=== PATIENT | female | born 1965 | race Caucasian/White ===

== ENCOUNTER 2016-06-14 11:58 | Emergency (ER) | payer BC ==
[~2016-06-14] VITALS: Ht 152.4 cm; Wt 65.0 kg
[~2016-06-14 11:58] MED LIST: MAGNESIUM PO; MELO15TA3 PO; VITAMIN B-12 PO
[2016-06-14 12:09] VITALS: TEMP 36.6
[2016-06-14] MEDS ORDERED: SODIUM CHLORIDE 0.9% 1000ML 1,000 ML IV STA (12:29)
[2016-06-14] MEDS ORDERED: ACETAMINOPHEN 500 MG TAB PO STA (12:29)
--- NOTE | 2016-06-14 12:33 | EMERGENCY ROOM VISIT NOTE ---
History Report prepared by Jose Eliasibmaritza: David Whittaker Under the Supervision of: Dr. Jerome Monteiro M.D. First contact with patient: 12:00 Chief Complaint: SYNCOPE (NEAR SYNCOPE) Stated Complaint: NEAR SYNCOPE, ILLNESS Nursing Triage Summary: Patient arrived via EMS. Patient states has been having fatigue and runny nose since Sunday. Patient went to [facility] walk in clinic today and had sudden onset dizziness, lightheadedness and nausea. Patient had near syncopal episode. Patient denies previous history of dizziness and lightheadedness. Patient has hx of breast CA. Patient c/o dizziness, lightheadedness and nausea upon arrival to ER. History of Present Illness The patient is a 51 year old female who presents to the Emergency Room with complaints of a resolved episode of near-syncope that occurred prior to arrival. The patient was seen by a [facility] urgent care clinic earlier today for ongoing sinus congestion and rhinorrhea for the past five days. She denies cough. She notes that her symptoms resemble past sinus infections. She became dizzy and lightheaded at the [facility] clinic and nearly passed out. She currently complains of feeling nauseous. The patient denies any vomiting, diarrhea, or abdominal pain. The patient has a history of breast cancer. She denies the possibility of . 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 A total of 10 systems reviewed and were otherwise negative. Past Medical & Surgical Medical Problems: (1) ANXIETY STATE NOS (2) HX OF BREAST MALIGNANCY (3) PROPHYLACTIC OVARY REMOVAL (4) Right flank tenderness Family History No pertinent family history Social History Smoking Status: Current Every Day Smoker Alcohol Use: occasionally Marital Status: Housing Status: lives with family Occupation Status: employed Current/Historical Medications Scheduled Ondasetron Odt (Zofran Odt), 4 MG SL Q6H Sulfa/Trimethoprim (Bactrim Ds 800MG/160MG), 1 TAB PO BID Allergies Coded Allergies: Penicillins (Verified Allergy, Intermediate, hives, 02/17/14) Morphine (Verified Adverse Reaction, Intermediate, nausea & vomiting, 05/14) Physical Exam Vital Signs Date Time Temp Pulse Resp B/P Pulse Ox O2 Delivery O2 Flow Rate FiO2 06/14/16 14:04 80 18 116/78 98 06/14/16 13:05 72 111/69 98 Room Air 80 114/86 85 112/78 06/14/16 12:39 98 Room Air 06/14/16 12:11 75 06/14/16 12:09 99 Room Air 06/14/16 12:09 36.6 70 12 106/66 99 Room Air Physical Exam GENERAL: Patient is a healthy-appearing well-nourished HEAD: Normocephalic atraumatic EYES: Ocular movements intact pupils equal and react to light OROPHARYNX mucous membranes are moist no exudates present no erythema or edema present NECK: Supple no nuchal rigidity CHEST: Good equal expansion LUNGS: Clear and equal to auscultation CARDIAC: Normal S1 and S2 ABDOMEN: Soft nontender no guarding BACK: No CVA tenderness EXTREMITIES: No pain upon palpation normal muscle strength in all groups no clubbing cyanosis or edema NEURO: Patient is following commands is answering questions appropriately. Alert and oriented x3 Cranial Nerves 2-12 grossly intact Medical Decision & Procedures ER Provider Diagnostic Interpretation: X-ray results as stated below per interpretation by me and the radiologist: CHEST ONE VIEW PORTABLE CLINICAL HISTORY: Pt c/o dizziness dyspnea COMPARISON STUDY: 05/14/2012 FINDINGS: Thoracic scoliosis. Lungs are clear. Diaphragms are smooth. Stable postoperative changes left/right axilla IMPRESSION: Negative chest. Electronically signed by: Reginaldo Fernández M.D. 06/14/2016 1:03 PM Laboratory Results 06/14/16 12:34 Red Blood Count 4.66, Mean Corpuscular Volume 91.2, Mean Corpuscular Hemoglobin 31.1, Mean Corpuscular Hemoglobin Concent 34.1, Mean Platelet Volume 11.5, Neutrophils (%) (Auto) 75.6, Lymphocytes (%) (Auto) 18.4, Monocytes (%) (Auto) 5.5, Eosinophils (%) (Auto) 0.3, Basophils (%) (Auto) 0.1, Neutrophils # (Auto) 5.66, Lymphocytes # (Auto) 1.38, Monocytes # (Auto) 0.41, Eosinophils # (Auto) 0.02, Basophils # (Auto) 0.01 06/14/16 12:34 Test 06/14/16 12:34 06/14/16 12:46 06/14/16 12:50 06/14/16 13:00 White Blood Count 7.49 K/uL (4.8-10.8) Red Blood Count 4.66 M/uL (4.2-5.4) Hemoglobin 14.5 g/dL (12.0-16.0) Hematocrit 42.5 % (37-47) Mean Corpuscular Volume 91.2 fL (80-100) Mean Corpuscular Hemoglobin 31.1 pg (25-34) Mean Corpuscular Hemoglobin Concent 34.1 g/dl (32-36) Platelet Count 201 K/uL (130-400) Mean Platelet Volume 11.5 fL (7.4-10.4) Neutrophils (%) (Auto) 75.6 % Lymphocytes (%) (Auto) 18.4 % Monocytes (%) (Auto) 5.5 % Eosinophils (%) (Auto) 0.3 % Basophils (%) (Auto) 0.1 % Neutrophils # (Auto) 5.66 K/uL (1.4-6.5) Lymphocytes # (Auto) 1.38 K/uL (1.2-3.4) Monocytes # (Auto) 0.41 K/uL (0.11-0.59) Eosinophils # (Auto) 0.02 K/uL (0-0.5) Basophils # (Auto) 0.01 K/uL (0-0.2) RDW Standard Deviation 44.6 fL (36.4-46.3) RDW Coefficient of Variation 13.4 % (11.5-14.5) Immature Granulocyte % (Auto) 0.1 % Immature Granulocyte # (Auto) 0.01 K/uL (0.00-0.02) Anion Gap 9.0 mmol/L (3-11) Est Creatinine Clear Calc Drug Dose 98.7 ml/min Estimated GFR () 125.4 Estimated GFR (Non- 108.2 BUN/Creatinine Ratio 32.5 (10-20) Calcium Level 9.1 mg/dl (8.5-10.1) Total Bilirubin 0.6 mg/dl (0.2-1) Direct Bilirubin 0.1 mg/dl (0-0.2) Aspartate Amino Transf (AST/SGOT) 26 U/L (15-37) Alanine Aminotransferase (ALT/SGPT) 54 U/L (12-78) Alkaline Phosphatase 85 U/L (45-117) Total Protein 7.3 gm/dl (6.4-8.2) Albumin 4.2 gm/dl (3.4-5.0) Thyroid Stimulating Hormone (TSH) 0.385 uIu/ml (0.300-4.500) Bedside Glucose 85 mg/dl (70-90) Influenza Type A (RT-PCR) Neg for Influ A (NEG) Influenza Type A Antigen Neg for Influ A (NEG) Influenza Type B Antigen Neg for Influ B (NEG) Influenza Type B (RT-PCR) Neg for Influ B (NEG) Urine Color YELLOW Urine Appearance CLEAR (CLEAR) Urine pH 7.0 (4.5-7.5) Urine Specific Olla 1.021 (1.000-1.030) Urine Protein NEG (NEG) Urine Glucose (UA) NEG (NEG) Urine Ketones 3+ (NEG) Urine Occult Blood NEG (NEG) Urine Nitrite NEG (NEG) Urine Bilirubin NEG (NEG) Urine Urobilinogen NEG (NEG) Urine Leukocyte Esterase SMALL (NEG) Urine WBC (Auto) 5-10 /hpf (0-5) Urine RBC (Auto) 5-10 /hpf (0-4) Urine Hyaline Casts (Auto) 1-5 /lpf (0-5) Urine Epithelial Cells (Auto) >30 /lpf (0-5) Urine Bacteria (Auto) 1+ (NEG) Labs reviewed by ED physician. Medications Administered Medications (Trade) Dose Ordered Sig/Jaspreet Route Start Time Stop Time Status Last Admin Dose Admin Sodium Chloride (Nss 1000ml) 1,000 ml @ 999 mls/hr Q1H1M STAT IV 06/14/16 12:29 06/14/16 13:29 DC 06/14/16 13:04 999 MLS/HR Acetaminophen (Tylenol Tab) 1,000 mg NOW STAT PO 06/14/16 12:29 06/14/16 12:31 DC 06/14/16 13:04 1,000 MG Trimethoprim/ Sulfamethoxazole (Septra Ds 800/ 160MG Tab) 1 tab NOW STAT PO 06/14/16 13:44 06/14/16 13:45 DC 06/14/16 13:57 1 TAB ECG Indication: syncope Rate (beats per minute): 87 Rhythm: normal sinus Findings: no acute ischemic change, no ectopy, other (normal EKG) ED Course 1225: Past medical records reviewed. The patient was evaluated in room A5. A complete history and physical examination was performed. 1229: Tylenol 1000 mg PO, NSS 1000 ml @ 999 mls/hr. 1340: Reassessed the patient. Discussed the findings with her. She verbalized understanding and agreement. The patient is ready for discharge. 1344: Septra Ds 800/160 mg PO. Medical Decision Differential diagnosis: Etiologies such as vasovagal event, infection, hypoglycemia, electrolyte abnormalities, cardiac sources, intracerebral event, toxicologic, neurologic, as well as others were entertained. This is a 51-year-old female who presents emergency department complaining of generalized illness. The patient has a negative flu however does not have an elevation in her white blood count. She was given normal saline bolus as well as Tylenol here in the emergency department. Repeat examination revealed improvement patient's symptoms. I believe that the patient as well as to be discharged home. The patient has been complaining of sinusitis-like symptoms however has no evidence of meningitis or encephalitis on examination. She also has a large number of white blood cells in her urine for this reason I will place the patient on Bactrim to treat both sinusitis as well as UTI. Patient was in agreement with the treatment plan. Impression Primary Impression: Sinusitis Additional Impressions: UTI (urinary tract infection) Vasovagal episode Scribe Attestation The scribe's documentation has been prepared under my direction and personally reviewed by me in its entirety. I confirm that the note above accurately reflects all work, treatment, procedures, and medical decision making performed by me. Departure Information Dispostion Home / Self-Care Prescriptions Ondasetron Odt (ZOFRAN ODT) 4 Mg Tab 4 MG SL Q6H for Nausea, #6 TAB Prov: Jerome Monteiro MD 06/14/16 Sulfa/Trimethoprim (Bactrim Ds 800MG/160MG) Tab 1 TAB PO BID for 10 Days, #20 TAB Prov: Jerome Monteiro MD 06/14/16 Referrals No Doctor, Assigned (PCP) Forms HOME CARE DOCUMENTATION FORM, IMPORTANT VISIT INFORMATION, School Instructions, Work Instructions Patient Instructions ED Sinusitis Abx Tx, My [facility], Understanding Vasovagal Syncope Additional Instructions Culture results are usually available in approx 48 hours You have been examined and treated today on an emergency basis only. This is not a substitute for, or an effort to provide, complete comprehensive medical care. It is impossible to recognize and treat all injuries or illnesses in a single emergency department visit. It is therefore important that you follow up closely with your PCP. Call as soon as possible for an appointment. Thank you for your time and consideration. I look forward to speaking with you again soon. Please don't hesitate to call us if you have any questions. Problem Qualifiers Primary Impression: Sinusitis Sinusitis location: frontal Chronicity: acute Recurrence: not specified as recurrent Qualified Codes: J01.10 - Acute frontal sinusitis, unspecified Additional Impressions: UTI (urinary tract infection) Urinary tract infection type: acute cystitis Hematuria presence: with hematuria Qualified Codes: N30.01 - Acute cystitis with hematuria
[2016-06-14 12:39] VITALS: O2SAT 98; Ht 152.4 cm; Wt 65.0 kg
[2016-06-14 12:46] LABS: BASO % 0.1 %; BASO ABS # 0.01 K/uL (0-0.2); COMPLETE YES; EOS % 0.3 %; HEMATOCRIT 42.5 % (37-47); IG% 0.1 %; LYMPH % 18.4 %; LYMPH ABS # 1.38 K/uL (1.2-3.4); MEAN CELL VOLUME 91.2 fL (80-100); MEAN CORPUSCULAR HEMOGLOBIN 31.1 pg (25-34); MEAN CORPUSCULAR HGB CONC 34.1 g/dl (32-36); MEAN PLATELET VOLUME 11.5 fL (7.4-10.4); MONO % 5.5 %; NEUT % 75.6 %; PLATELET COUNT 201 K/uL (130-400); RED BLOOD COUNT 4.66 M/uL (4.2-5.4); WHITE BLOOD COUNT 7.49 K/uL (4.8-10.8)
--- NOTE | 2016-06-14 13:05 | DIAGNOSTIC IMAGING REPORT ---
CHEST ONE VIEW PORTABLE CLINICAL HISTORY: Pt c/o dizziness dyspnea COMPARISON STUDY: 05/14/2012 FINDINGS: Thoracic scoliosis. Lungs are clear. Diaphragms are smooth. Stable postoperative changes left/right axilla IMPRESSION: Negative chest. Electronically signed by: Reginaldo Fernández M.D. 06/14/2016 1:03 PM Dictated Date/Time: 06/14/2016 1:03 PM
[2016-06-14 13:11] LABS: BUN/CREATININE RATIO 32.5 (10-20); CALCIUM 9.1 mg/dl (8.5-10.1); CREATININE 0.58 mg/dl (0.60-1.20); POTASSIUM 3.8 mmol/L (3.5-5.1)
[2016-06-14 13:22] LABS: THYROID STIMULATING HORMONE 0.385 uIu/ml (0.300-4.500)
[2016-06-14 13:38] LABS: URINE APPEARANCE CLEAR (CLEAR); URINE BILIRUBIN NEG (NEG); URINE COLOR YELLOW; URINE EPITHELIAL CELL AUTO >30 /lpf (0-5); URINE NITRITE NEG (NEG); URINE SPECIFIC GRAVITY 1.021 (1.000-1.030); UROBILINOGEN NEG (NEG)
[2016-06-14 13:41] LABS: MANUAL MICROSCOPIC REQUIRED? NO; REVIEW REQ? NO
[2016-06-14] MEDS ORDERED: SULFAMETHOXAZOLE/TRIMETHOPRIM DS 800/160MG TAB PO STA (13:44)
[2016-06-14] MEDS ORDERED: SULF800T23 PO (13:46)
[2016-06-14] MEDS ORDERED: ONDA4TAB10 SL (13:46)
[2016-06-14 14:04] VITALS: BP 116/78; PULSE 80; O2SAT 98
[2016-06-14 15:51] LABS: INFLUENZA A PCR Neg for Influ A (NEG); INFLUENZA B PCR Neg for Influ B (NEG)
== END 2016-06-14 14:06 | disposition home or self-care (01) ==
LOC: C.EDA 11:58 → EDBD 11:58 → C.EDA 14:06
DX: J01.10 Acute frontal sinusitis, unspecified (principal); N30.01 Acute cystitis with hematuria; R55 Syncope and collapse; F17.200 Nicotine dependence, unspecified, uncomplicated; F41.9 Anxiety disorder, unspecified; Z85.3 Personal history of malignant neoplasm of breast

== ENCOUNTER 2017-09-14 17:38 | Emergency (ER) | payer BC ==
[~2017-09-14] VITALS: Ht 152.4 cm; Wt 60.8 kg
[2017-09-14 17:46] VITALS: TEMP 36.6
[2017-09-14] MEDS ORDERED: ONDANSETRON INJ 2 MG/ML 2 ML VIAL IV STA (17:49)
[2017-09-14] MEDS ORDERED: SODIUM CHLORIDE 0.9% 1000ML 1,000 ML IV STA (17:49)
[2017-09-14] MEDS ORDERED: MECLIZINE HCL 25 MG TAB PO STA (17:56)
[2017-09-14 18:00] VITALS: Ht 152.4 cm; Wt 60.8 kg
[2017-09-14 18:04] VITALS: O2SAT 100
--- NOTE | 2017-09-14 18:18 | DIAGNOSTIC IMAGING REPORT ---
CT OF THE CERVICAL SPINE WITHOUT CONTRAST CLINICAL HISTORY: Fall. COMPARISON STUDY: Cervical spine radiographs April 08, 2010. TECHNIQUE: Helical axial images of the cervical spine were obtained without IV contrast. Sagittal and coronal reconstructions were viewed. A dose lowering technique was utilized adhering to the principles of ALARA. FINDINGS: There is reversal of the normal cervical lordosis. Craniocervical junction is intact. No acute cervical spine fracture. There is no prevertebral edema. There is mild multilevel degenerative disc disease. IMPRESSION: No acute cervical spine fracture or subluxation. Electronically signed by: Tommy Julio M.D. 09/14/2017 6:17 PM Dictated Date/Time: 09/14/2017 6:13 PM
--- NOTE | 2017-09-14 18:19 | DIAGNOSTIC IMAGING REPORT ---
HEAD CT NONCONTRAST CT DOSE: HISTORY: Fall. Head injury. EVALUATE WEAKNESS TECHNIQUE: Multiaxial CT images of the head were performed without the use of intravenous contrast. Automated exposure control was utilized for this study. A dose lowering technique was utilized adhering to the principles of ALARA. Comparison: Head CT 04/08/2010. Findings: The paranasal sinuses and mastoid air cells are clear. The calvarium and skull base are intact. The ventricles and sulci are within normal limits. There is no mass, hematoma, midline shift, or acute infarct. Right posterior scalp swelling. Impression: No acute intracranial abnormality. Right posterior scalp swelling. Electronically signed by: Se Lennon M.D. 09/14/2017 6:18 PM Dictated Date/Time: 09/14/2017 6:13 PM
[2017-09-14] MEDS ORDERED: LORAZEPAM 2 MG/ML 1 ML VIAL IV STA (18:28)
[2017-09-14 18:39] LABS: BASO % 0.2 %; BASO ABS # 0.03 K/uL (0-0.2); EOS % 0.6 %; EOS ABS # 0.07 K/uL (0-0.5); HEMATOCRIT 39.6 % (37-47); HEMOGLOBIN 13.7 g/dL (12.0-16.0); IG# 0.03 K/uL (0.00-0.02); LYMPH % 15.1 %; LYMPH ABS # 1.82 K/uL (1.2-3.4); MEAN CELL VOLUME 89.6 fL (80-100); MEAN CORPUSCULAR HGB CONC 34.6 g/dl (32-36); MEAN PLATELET VOLUME 10.6 fL (7.4-10.4); MONO % 6.6 %; NEUT % 77.3 %; PLATELET COUNT 199 K/uL (130-400); RED CELL DISTRIBUTION WIDTH SD 42.3 fL (36.4-46.3); WHITE BLOOD COUNT 12.05 K/uL (4.8-10.8)
[2017-09-14 18:49] LABS: PTT PATIENT 22.7 SECONDS (21.0-31.0)
--- NOTE | 2017-09-14 18:55 | DIAGNOSTIC IMAGING REPORT ---
CHEST ONE VIEW PORTABLE HISTORY: EVALUATE WEAKNESS COMPARISON: Chest 06/14/2016. FINDINGS: Hazy appearance to the mid to lower lung zones is likely due to overlapping soft tissue. No pleural effusions. No pneumothorax. Surgical clips within the left axilla. The heart is normal in size. A few linear densities the left lung base favor subsegmental atelectasis. Otherwise, the lungs are clear. IMPRESSION: No acute process. Electronically signed by: Se Lennon M.D. 09/14/2017 6:54 PM Dictated Date/Time: 09/14/2017 6:52 PM
[2017-09-14 19:27] LABS: ALKALINE PHOSPHATASE 71 U/L (45-117); ALT/SGPT 22 U/L (12-78); AST/SGOT 19 U/L (15-37); BLOOD UREA NITROGEN 26 mg/dl (7-18); CARBON DIOXIDE 22 mmol/L (21-32); CREATININE 0.87 mg/dl (0.60-1.20); GLUCOSE 78 mg/dl (70-99); LIPASE 117 U/L (73-393); POTASSIUM 3.7 mmol/L (3.5-5.1); SODIUM 141 mmol/L (136-145)
[2017-09-14] MEDS ORDERED: MECL25CH PEG (19:57)
[2017-09-14] MEDS ORDERED: MECLIZINE HCL 25MG HOME PACK PO ONE (20:00)
[2017-09-14 20:13] VITALS: BP 114/72; PULSE 88; O2SAT 96
--- NOTE | 2017-09-14 22:48 | EMERGENCY ROOM VISIT NOTE ---
History Report prepared by Jose Eliasibe: Eunice Farrell Under the Supervision of: Dr. Samuel Marmolejo D.O. First contact with patient: 17:40 Stated Complaint: DIZZY, FALL, AMS History of Present Illness The patient is a 52 year old female who presents to the Emergency Room with complaints of a syncopal episode that occurred prior to arrival. She was brought to the ED via EMS. Her reports she got out of work around noon today and went shopping afterwards. Around 1500, she was back at home, playing ball with her family. She went to hit the ball and started having severe pain in her elbow. She notes she then became very dizzy and lightheaded.. She fell backwards and hit her posterior head, causing 10/10 pain. She did not lose consciousness but was slow to respond after the incident and "didn't seem like herself". Family notes this is happened before in the past. There is no shaking to suggest seizures. The patient complains of dizziness that is worse when her eyes are closed, and numbness in her bilateral arms and hands. Pt denies change in vision, fevers, chest pain, back pain, shortness of breath, nausea, vomiting, diarrhea, pain with urination, and melena. 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 A total of 10 systems reviewed and were otherwise negative. Past Medical & Surgical Medical Problems: (1) ANXIETY STATE NOS (2) HX OF BREAST MALIGNANCY (3) PROPHYLACTIC OVARY REMOVAL (4) Right flank tenderness Family History No pertinent family history Social History Smoking Status: Current Every Day Smoker Alcohol Use: occasionally Drug Use: none Marital Status: Housing Status: lives with family Occupation Status: employed Current/Historical Medications Scheduled Meclizine HCl (Meclizine), 25 MG PEG TID Allergies Coded Allergies: Penicillins (Verified Allergy, Intermediate, hives, 09/14/17) Morphine (Verified Adverse Reaction, Intermediate, nausea & vomiting, 09/14) Physical Exam Vital Signs Date Time Temp Pulse Resp B/P (MAP) Pulse Ox O2 Delivery O2 Flow Rate FiO2 09/14/17 20:13 88 18 114/72 96 09/14/17 19:35 88 21 114/72 96 Room Air 09/14/17 18:05 60 18 120/70 98 Room Air 55 110/65 50 95/60 09/14/17 18:05 88 20 120/70 100 Room Air 09/14/17 18:04 100 Room Air 09/14/17 18:04 100 Room Air 09/14/17 17:49 80 09/14/17 17:46 36.6 84 20 110/72 100 Room Air 09/14/17 17:46 20 100 Physical Exam GENERAL: Patient is laying in bed, C-collar in place, moving extremities spontaneously, no distress, non-toxic HEAD: normal cephalic, atraumatic, small contusion to posterior occiput EYE EXAM: normal conjunctiva, PERRL and EOM's grossly intact OROPHARYNX: no exudate, no erythema, lips, buccal mucosa, and tongue normal and mucous membranes are moist EARS: TMs clear b/l NECK: supple, no nuchal rigidity, no adenopathy, non-tender CHEST: stable to compression anteriorly and posteriorly LUNGS: clear to auscultation. Normal chest wall mechanics HEART: no murmurs, S1 normal and S2 normal ABDOMEN: abdomen soft, non-tender, normo-active bowel sounds, no masses, no rebound or guarding. PELVIS: stable to compression anteriorly and posteriorly BACK: Back is symmetrical on inspection and there is no deformity, no midline tenderness, no CVA tenderness. UPPER EXTREMITIES: full active and passive range of motion of all joints without tenderness to palpation LOWER EXTREMITIES: full active and passive range of motion of all joints without tenderness to palpation NEURO EXAM: Normal sensorium, cranial nerves II-XII intact, normal speech, no weakness of arms, no weakness of legs. GCS: 15. No drift. Medical Decision & Procedures ER Provider Diagnostic Interpretation: Radiology results as stated below per my review and the radiologist's interpretation: HEAD CT NONCONTRAST CT DOSE: HISTORY: Fall. Head injury. EVALUATE WEAKNESS TECHNIQUE: Multiaxial CT images of the head were performed without the use of intravenous contrast. Automated exposure control was utilized for this study. A dose lowering technique was utilized adhering to the principles of ALARA. Comparison: Head CT 04/08/2010. Findings: The paranasal sinuses and mastoid air cells are clear. The calvarium and skull base are intact. The ventricles and sulci are within normal limits. There is no mass, hematoma, midline shift, or acute infarct. Right posterior scalp swelling. Impression: No acute intracranial abnormality. Right posterior scalp swelling. Electronically signed by: Se Lennon M.D. 09/14/2017 6:[address] OF THE CERVICAL SPINE WITHOUT CONTRAST CLINICAL HISTORY: Fall. COMPARISON STUDY: Cervical spine radiographs April 08, 2010. TECHNIQUE: Helical axial images of the cervical spine were obtained without IV contrast. Sagittal and coronal reconstructions were viewed. A dose lowering technique was utilized adhering to the principles of ALARA. FINDINGS: There is reversal of the normal cervical lordosis. Craniocervical junction is intact. No acute cervical spine fracture. There is no prevertebral edema. There is mild multilevel degenerative disc disease. IMPRESSION: No acute cervical spine fracture or subluxation. Electronically signed by: Tommy Julio M.D. 09/14/2017 6:17 PM CHEST ONE VIEW PORTABLE HISTORY: EVALUATE WEAKNESS COMPARISON: Chest 06/14/2016. FINDINGS: Hazy appearance to the mid to lower lung zones is likely due to overlapping soft tissue. No pleural effusions. No pneumothorax. Surgical clips within the left axilla. The heart is normal in size. A few linear densities the left lung base favor subsegmental atelectasis. Otherwise, the lungs are clear. IMPRESSION: No acute process. Electronically signed by: Se Lennon M.D. 09/14/2017 6:54 PM Laboratory Results 09/14/17 18:25 Red Blood Count 4.42, Mean Corpuscular Volume 89.6, Mean Corpuscular Hemoglobin 31.0, Mean Corpuscular Hemoglobin Concent 34.6, Mean Platelet Volume 10.6, Neutrophils (%) (Auto) 77.3, Lymphocytes (%) (Auto) 15.1, Monocytes (%) (Auto) 6.6, Eosinophils (%) (Auto) 0.6, Basophils (%) (Auto) 0.2, Neutrophils # (Auto) 9.30, Lymphocytes # (Auto) 1.82, Monocytes # (Auto) 0.80, Eosinophils # (Auto) 0.07, Basophils # (Auto) 0.03 09/14/17 18:25 Test 09/14/17 18:15 09/14/17 18:24 09/14/17 18:25 09/14/17 19:38 Bedside Glucose 94 mg/dl (70-90) Prothrombin Time 10.2 SECONDS (9.0-12.0) Prothromb Time International Ratio 1.0 (0.9-1.1) Activated Partial Thromboplast Time 22.7 SECONDS (21.0-31.0) Partial Thromboplastin Ratio 0.9 White Blood Count 12.05 K/uL (4.8-10.8) Red Blood Count 4.42 M/uL (4.2-5.4) Hemoglobin 13.7 g/dL (12.0-16.0) Hematocrit 39.6 % (37-47) Mean Corpuscular Volume 89.6 fL (80-100) Mean Corpuscular Hemoglobin 31.0 pg (25-34) Mean Corpuscular Hemoglobin Concent 34.6 g/dl (32-36) Platelet Count 199 K/uL (130-400) Mean Platelet Volume 10.6 fL (7.4-10.4) Neutrophils (%) (Auto) 77.3 % Lymphocytes (%) (Auto) 15.1 % Monocytes (%) (Auto) 6.6 % Eosinophils (%) (Auto) 0.6 % Basophils (%) (Auto) 0.2 % Neutrophils # (Auto) 9.30 K/uL (1.4-6.5) Lymphocytes # (Auto) 1.82 K/uL (1.2-3.4) Monocytes # (Auto) 0.80 K/uL (0.11-0.59) Eosinophils # (Auto) 0.07 K/uL (0-0.5) Basophils # (Auto) 0.03 K/uL (0-0.2) RDW Standard Deviation 42.3 fL (36.4-46.3) RDW Coefficient of Variation 13.0 % (11.5-14.5) Immature Granulocyte % (Auto) 0.2 % Immature Granulocyte # (Auto) 0.03 K/uL (0.00-0.02) Anion Gap 9.0 mmol/L (3-11) Est Creatinine Clear Calc Drug Dose 63.0 ml/min Estimated GFR () 90.0 Estimated GFR (Non- 77.7 BUN/Creatinine Ratio 30.3 (10-20) Calcium Level 9.0 mg/dl (8.5-10.1) Magnesium Level 2.1 mg/dl (1.8-2.4) Total Bilirubin 0.6 mg/dl (0.2-1) Direct Bilirubin 0.1 mg/dl (0-0.2) Aspartate Amino Transf (AST/SGOT) 19 U/L (15-37) Alanine Aminotransferase (ALT/SGPT) 22 U/L (12-78) Alkaline Phosphatase 71 U/L (45-117) Troponin I < 0.015 ng/ml (0-0.045) Total Protein 7.0 gm/dl (6.4-8.2) Albumin 4.0 gm/dl (3.4-5.0) Lipase 117 U/L (73-393) Ethyl Alcohol mg/dL 3.8 mg/dl (0-3) Urine Color YELLOW Urine Appearance CLEAR (CLEAR) Urine pH 7.0 (4.5-7.5) Urine Specific [place] 1.028 (1.000-1.030) Urine Protein NEG (NEG) Urine Glucose (UA) NEG (NEG) Urine Ketones 2+ (NEG) Urine Occult Blood NEG (NEG) Urine Nitrite NEG (NEG) Urine Bilirubin NEG (NEG) Urine Urobilinogen NEG (NEG) Urine Leukocyte Esterase SMALL (NEG) Urine WBC (Auto) 5-10 /hpf (0-5) Urine RBC (Auto) 5-10 /hpf (0-4) Urine Hyaline Casts (Auto) 5-10 /lpf (0-5) Urine Epithelial Cells (Auto) >30 /lpf (0-5) Urine Bacteria (Auto) 1+ (NEG) Laboratory results per my review. Medications Administered Medications (Trade) Dose Ordered Sig/Jaspreet Route Start Time Stop Time Status Last Admin Dose Admin Ondansetron HCl (Zofran Inj) 4 mg NOW STAT IV 09/14/17 17:49 09/14/17 17:51 DC 09/14/17 18:10 4 MG Sodium Chloride 1,000 ml @ 999 mls/hr Q1H1M STAT IV 09/14/17 17:49 09/14/17 18:49 DC 09/14/17 18:09 999 MLS/HR Meclizine HCl (Antivert Tab) 25 mg NOW STAT PO 09/14/17 17:56 09/14/17 17:57 DC 09/14/17 18:10 25 MG Lorazepam (Ativan Inj) 1 mg NOW STAT IV 09/14/17 18:28 09/14/17 18:29 DC 09/14/17 18:28 1 MG Meclizine HCl (Antivert 25MG Home Pack) 1 homepack UD ONCE PO 09/14/17 20:00 09/14/17 20:01 DC 09/14/17 20:09 1 HOMEPACK ECG Per My Interpretation Indication: weakness Rate (beats per minute): 81 Rhythm: sinus rhythm Findings: other (normal axis, no PVC) ED Course ED COURSE: Vital signs were reviewed and showed normal vital signs The patients medical record was reviewed The above diagnostic studies were performed and reviewed. ED treatments and interventions as stated above. 174: The patient was evaluated in room A9. A complete history and physical examination was performed. 174: NSS 1000 ml @ 999 mls/hr IV, Zofran 4 mg IV. 175: Meclizine HCl 25 mg IV. 1826: I reevaluated the patient. She is still in pain, so we will try an ice- pack. 182: Ativan 1 mg IV. 1854: I reevaluated the patient. She is feeling much better. 1945: Nursing informed me the patient got up and walked to the bathroom with assistance, then walked back to bed by herself. She feels much better and states she wants to go home. 1950: Upon reevaluation, the patient is is feeling much better. I offered the patient a stay in the hospital, but she declines stating she would like to go home. I discussed my findings with the patient and she understands and agrees with the treatment plan. 2000: Meclizine HCl 25 mg 1 homepack PO. Based on the patients age, coexisting illnesses, exam and lab findings the decision to treat as an outpatient was made. The patient remained stable while under my care. The patient appeared well at the time of discharge. Medical Decision Differential diagnoses include major intracranial, cervical, spinal, thoracic, abdominal, pelvic and neurologic injury. Fracture, contusion, sprain, strain, laceration, abrasions included as well. Patient is a 52-year-old female who presents to ER for pain in her elbow which then led to dizziness syncope. She is currently at baseline. She is neurologically intact. CBC along with BMP, LFTs, bilirubin and troponin was unremarkable. Lipase is normal. Alcohol is negative. UA was contaminated. INR was unremarkable. EKG was nondiagnostic. CT of the head, cervical spine and chest x-ray were unremarkable. Patient was given IV dose of Ativan as her symptoms are significantly worsened with any movement of her head. Ativan completely resolved the symptoms. She was able to ambulate without difficulty. She is extremely tired. Recommended observation due to the syncopal episode and her age however she declined. Following informed refusal of care she was discharged follow-up with PCP as an outpatient. Discussed with Pt concerning signs and symptoms to watch out for. Pt was instructed to follow up with their PCP and discussed with the patient their option to return to the ED at anytime for persistent or worsening symptoms. The appropriate anticipatory guidance and out-patient management, including indications for return to the emergency department, were explained at length to the patient and understood. Medication Reconcilliation Current Medication List: was personally reviewed by me Blood Pressure Screening Patient's blood pressure: Normal blood pressure Blood pressure disposition: Did not require urgent referral Impression Primary Impression: Vertigo Additional Impressions: Syncope Concussion Scribe Attestation The scribe's documentation has been prepared under my direction and personally reviewed by me in its entirety. I confirm that the note above accurately reflects all work, treatment, procedures, and medical decision making performed by me. Departure Information Dispostion Home / Self-Care Prescriptions Meclizine HCl (Meclizine) 25 Mg Chw 25 MG PEG TID for Dizziness or Vertigo, #30 Prov: Samuel Marmolejo, DO 09/14/17 Referrals No Doctor, Assigned (PCP) Patient Instructions My [facility], Syncope Causes, Syncope Dx, Vertigo Paroxysmal Positional Additional Instructions Please follow up with your primary care doctor with in the next 24 hours. Any worsening of your symptoms, please return to the ED immediately. This includes any fevers greater than 100.4, worsening pain, chest pain, shortness breath, persistent nausea, vomiting, unable to eat or drink, weakness or numbness in her arms or legs, or any other concerning signs or symptoms from your standpoint. Please take Antivert as needed for dizziness. Please try to remain as hydrated as possible. No driving until your symptoms completely resolved. Please refrain from drinking any alcohol until the symptoms resolve. Problem Qualifiers Additional Impressions: Syncope Syncope type: unspecified Qualified Codes: R55 - Syncope and collapse Concussion Encounter type: initial encounter Loss of consciousness presence/duration: with LOC of 30 min or less Qualified Codes: S06.0X1A - Concussion with loss of consciousness of 30 minutes or less, initial encounter
== END 2017-09-14 20:15 | disposition home or self-care (01) ==
LOC: C.EDA 17:38 → EDBD 17:38 → C.EDA 20:15
DX: R55 Syncope and collapse (principal); R42 Dizziness and giddiness; S06.0X9A Concussion with loss of consciousness of unspecified duration, initial encounter; S00.03XA Contusion of scalp, initial encounter; W19.XXXA Unspecified fall, initial encounter; Y92.009 Unspecified place in unspecified non-institutional (private) residence as the place of occurrence of the external cause; R40.2413 Glasgow coma scale score 13-15, at hospital admission; F17.200 Nicotine dependence, unspecified, uncomplicated; Z85.3 Personal history of malignant neoplasm of breast; Z88.1 Allergy status to other antibiotic agents; Z88.6 Allergy status to analgesic agent